=== PATIENT | female | born 1955 | race Caucasian/White ===

== ENCOUNTER 2022-06-24 12:49 | Outpatient (CLI) | payer MEDICARE, OTHER | END 2022-06-24 12:50 | disposition home or self-care (01) | LOC: CSHRAD 12:49 | PROVIDERS: ATTEND Internal Medicine Rheumatology | DX: M54.50 Low back pain, unspecified (principal); M25.541 Pain in joints of right hand; M25.542 Pain in joints of left hand; Q76.49 Other congenital malformations of spine, not associated with scoliosis; M47.816 Spondylosis without myelopathy or radiculopathy, lumbar region; S62.624 Displaced fracture of middle phalanx of right ring finger; M18.9 Osteoarthritis of first carpometacarpal joint, unspecified; M19.041 Primary osteoarthritis, right hand; M19.042 Primary osteoarthritis, left hand | CPT/HCPCS: 72110 ==